=== PATIENT | male | born 1975 | race Hispanic/Latino ===

== ENCOUNTER → 2021-03-03 | Outpatient (CLI) | payer OTHER | END | disposition home or self-care (01) | LOC: RAH 08:13 | PROVIDERS: ATTEND Family Medicine | DX: M51.27 Other intervertebral disc displacement, lumbosacral region (principal); M48.061 Spinal stenosis, lumbar region without neurogenic claudication | CPT/HCPCS: 72146; 72148 ==

== ENCOUNTER 2021-10-23 14:35 | Inpatient (IN) | payer OTHER ==
[~2021-10-23] VITALS: Ht 180.3 cm; Wt 115.2 kg
[2021-10-23 15:07] LABS: BASOPHILS % (AUTO) 0.4 % (0.0-5.0); EOSINOPHILS % (AUTO) 1.3 % (0.0-8.0); HEMATOCRIT 35.6 % (42-54); LYMPHOCYTES % (AUTO) 10.1 % (21.0-51.0); MEAN CORPUSCULAR HEMOGLOBIN 28.5 pg (27.0-33.0); MEAN CORPUSCULAR HGB CONC 33.4 g/dL (32.0-36.0); MEAN CORPUSCULAR VOLUME 85.4 fL (79-99); MONOCYTES % (AUTO) 6.9 % (3.0-13.0); NEUTROPHILS % (AUTO) 80.7 % (40.0-77.0); PLATELET COUNT (AUTO) 350 K/uL (130-400); RED BLOOD CELL COUNT(AUTO) 4.17 MIL/uL (4.50-6.20); RED CELL DISTRIBUTION WIDTH 13.2 % (11.0-15.5); WHITE BLOOD COUNT (AUTO) 13.9 K/uL (4.8-10.8)
[2021-10-23 15:25] LABS: APPEARANCE,URINE CLOUDY (CLEAR); BILIRUBIN,URINE NEGATIVE (NEGATIVE); COLOR,URINE YELLOW (YELLOW); GLUCOSE, URINE (UA) NEGATIVE (NEGATIVE); KETONES,URINE NEGATIVE (NEGATIVE); LEUKOCYTE ESTERASE ,URINE LARGE (NEGATIVE); NITRATE,URINE NEGATIVE (NEGATIVE); OCCULT BLOOD,URINE MODERATE (NEGATIVE); PH,URINE 7.5 (5.0-8.0); PROTEIN,URINE 100 mg/dL (NEGATIVE); UROBILINOGEN,URINE 0.2 mg/dL (0.2-1.0)
[2021-10-23] MEDS ORDERED: 0.9%NACL 1000ML 1,000 ML IV ONE (15:30)
[2021-10-23] MEDS ORDERED: KETOROLAC 30MG VIAL (30MG/ML) IVP ONE (15:30)
[2021-10-23 15:31] LABS: ALBUMIN 3.7 g/dL (3.5-5.0); BILIRUBIN,TOTAL 0.4 mg/dL (0.2-1.0); CREATININE 0.9 mg/dL (0.5-1.5); TOTAL PROTEIN, SERUM 8.5 g/dL (6.0-8.3)
[2021-10-23 15:34] LABS: BACTERIA,URINE Few /HPF (None Seen); WBC,URINE TNTC /HPF (0-1)
[2021-10-23 15:35] LABS: SQUAMOUS EPITHELIAL CELL,UR None Seen /HPF (0-2)
[2021-10-23] MEDS ORDERED: CEFEPIME HCL 2 GM VIAL IVP SCH (16:30)
[2021-10-23] MEDS ORDERED: LISI10TA24 PO (17:16)
[2021-10-23] MEDS ORDERED: ACET-2247 PO (17:16)
[2021-10-23] MEDS ORDERED: ATOR10 PO (17:16)
[2021-10-23] MEDS ORDERED: AMOX500T2 PO (17:16)
[2021-10-23] MEDS ORDERED: METF-446 PO (17:16)
[2021-10-23] MEDS ORDERED: DOCU100C33 PO (17:24)
[2021-10-23] MEDS ORDERED: GABA300S PO (17:24)
[2021-10-23] MEDS ORDERED: ZINC220T4 PO (17:24)
[2021-10-23] MEDS ORDERED: CHOL200026 PO (17:24)
[2021-10-23] MEDS ORDERED: ASCO1CAP5 PO (17:24)
[2021-10-23] MEDS ORDERED: [UNRECOGNIZED DRUG - OTHER] (17:24)
[2021-10-23] MEDS ORDERED: DEXTROSE 50%-WATER 50 ML DISP.SYRIN IV PRN (20:00)
[2021-10-23] MEDS ORDERED: 0.9%NACL 10ML VIAL IVP SCH (20:00)
[2021-10-23] MEDS ORDERED: LACTULOSE 20 GM/30 ML UDCUP PO PRN (20:00)
[2021-10-23] MEDS ORDERED: MAG/ALUM/SIMETH 30 ML UDCUP PO PRN (20:00)
[2021-10-23] MEDS ORDERED: ACETAMINOPHEN 325 MG TAB PO PRN (20:00)
[2021-10-23] MEDS ORDERED: DIPHENHYDRAMINE HCL 25 MG CAPSULE PO PRN (20:00)
[2021-10-23] MEDS: INSULIN R PO SSI SQ SCH (20:22)
[2021-10-23] MEDS: FAMOTIDINE 20MG TAB PO SCH (20:40)
[2021-10-23] MEDS: CEFEPIME HCL 2 GM VIAL IVP SCH (20:40)
[2021-10-24] MEDS ORDERED: ACET1TAB27 PO (01:32)
[2021-10-24] MEDS: ACETAMINOPHEN 325 MG TAB PO PRN ×3 (02:58→18:55)
[2021-10-24] MEDS: INSULIN R PO SSI SQ SCH ×4 (07:30→21:11)
[2021-10-24 07:56] LABS: HEMATOCRIT 30.3 % (42-54); MEAN CORPUSCULAR HEMOGLOBIN 28.7 pg (27.0-33.0); MEAN CORPUSCULAR VOLUME 87.1 fL (79-99); RED BLOOD CELL COUNT(AUTO) 3.48 MIL/uL (4.50-6.20); RED CELL DISTRIBUTION WIDTH 13.2 % (11.0-15.5); WHITE BLOOD COUNT (AUTO) 9.6 K/uL (4.8-10.8)
[2021-10-24] MEDS: CEFEPIME HCL 2 GM VIAL IVP SCH ×2 (08:24→21:11)
[2021-10-24 08:45] LABS: ALBUMIN 2.9 g/dL (3.5-5.0); BILIRUBIN,TOTAL 0.5 mg/dL (0.2-1.0); CREATININE 0.9 mg/dL (0.5-1.5); TOTAL PROTEIN, SERUM 7.3 g/dL (6.0-8.3)
[2021-10-24] MEDS: FAMOTIDINE 20MG TAB PO SCH ×2 (08:48→21:11)
[2021-10-24] MEDS: ENOXAPARIN SODIUM 40 MG/0.4 ML SYRINGE SQ SCH (08:55)
[2021-10-24] MEDS ORDERED: POLYETHYLENE GLYCOL 3350 17 GM POWD.PACK PO SCH (12:00)
[2021-10-24] MEDS ORDERED: BISACODYL 10 MG SUPP.RECT RC SCH (15:00)
[2021-10-25] MEDS: ACETAMINOPHEN 325 MG TAB PO PRN (03:09)
[2021-10-25 06:59] LABS: BASOPHILS % (AUTO) 0.3 % (0.0-5.0); EOSINOPHILS % (AUTO) 4.4 % (0.0-8.0); LYMPHOCYTES % (AUTO) 17.2 % (21.0-51.0); MEAN CORPUSCULAR HEMOGLOBIN 28.2 pg (27.0-33.0); MEAN CORPUSCULAR HGB CONC 33.3 g/dL (32.0-36.0); MEAN CORPUSCULAR VOLUME 84.7 fL (79-99); MONOCYTES % (AUTO) 5.7 % (3.0-13.0); NEUTROPHILS % (AUTO) 71.5 % (40.0-77.0); PLATELET COUNT (AUTO) 283 K/uL (130-400); RED BLOOD CELL COUNT(AUTO) 3.54 MIL/uL (4.50-6.20); RED CELL DISTRIBUTION WIDTH 12.8 % (11.0-15.5); WHITE BLOOD COUNT (AUTO) 9.2 K/uL (4.8-10.8)
[2021-10-25 08:17] LABS: ALBUMIN 2.9 g/dL (3.5-5.0); BILIRUBIN,TOTAL 0.3 mg/dL (0.2-1.0); CREATININE 0.7 mg/dL (0.5-1.5); MAGNESIUM 2.3 mg/dL (1.80-2.40); POTASSIUM 4.1 mmol/L (3.5-5.1)
[2021-10-25] MEDS: INSULIN R PO SSI SQ SCH ×4 (08:44→20:05)
[2021-10-25] MEDS: FAMOTIDINE 20MG TAB PO SCH ×2 (08:45→20:03)
[2021-10-25] MEDS: CEFEPIME HCL 2 GM VIAL IVP SCH ×2 (08:45→20:03)
[2021-10-25] MEDS: ENOXAPARIN SODIUM 40 MG/0.4 ML SYRINGE SQ SCH (08:45)
[2021-10-25 09:10] VITALS: BP 120/65
[2021-10-25 11:00] VITALS: BP 108/69
[2021-10-25] MEDS: ACETAMINOPHEN WITH CODEINE 1 TAB TAB PO PRN ×2 (11:47→20:04)
[2021-10-25] MEDS ORDERED: LIDOCAINE 5% TOPICAL PATCH TP SCH (12:00)
[2021-10-25] MEDS ORDERED: LIDOCAINE 5% TOPICAL PATCH TP ONE (12:00)
[2021-10-25] MEDS: [UNRECOGNIZED DRUG - OTHER] PO SCH ×2 (14:00→20:04)
[2021-10-25] MEDS: BALSAM PERU/CASTOR OIL 60 GM TUBE TP SCH ×2 (15:59→20:05)
[2021-10-25 16:00] VITALS: BP 123/68
[2021-10-25 20:03] VITALS: BP 106/69
[2021-10-25] MEDS: ATORVASTATIN 10 MG TABLET PO SCH (20:03)
[2021-10-25] MEDS: DOCUSATE SODIUM 100 MG CAP PO SCH (20:03)
[2021-10-25] MEDS: GABAPENTIN 300 MG CAPSULE PO SCH (21:02)
[2021-10-25 23:16] VITALS: BP 89/54
[2021-10-26] VITALS (7 sets, daily range): BP systolic 89–134; BP diastolic 49–89
[2021-10-26] MEDS: INSULIN R PO SSI SQ SCH ×4 (05:54→20:26)
[2021-10-26 06:35] LABS: BASOPHILS % (AUTO) 0.6 % (0.0-5.0); EOSINOPHILS % (AUTO) 5.5 % (0.0-8.0); LYMPHOCYTES % (AUTO) 27.2 % (21.0-51.0); MEAN CORPUSCULAR HGB CONC 33.3 g/dL (32.0-36.0); MONOCYTES % (AUTO) 7.2 % (3.0-13.0); NEUTROPHILS % (AUTO) 58.7 % (40.0-77.0); PLATELET COUNT (AUTO) 294 K/uL (130-400); RED BLOOD CELL COUNT(AUTO) 3.45 MIL/uL (4.50-6.20); WHITE BLOOD COUNT (AUTO) 7.1 K/uL (4.8-10.8)
[2021-10-26 06:54] LABS: BILIRUBIN,TOTAL 0.3 mg/dL (0.2-1.0); CREATININE 0.8 mg/dL (0.5-1.5); MAGNESIUM 2.1 mg/dL (1.80-2.40); POTASSIUM 4.1 mmol/L (3.5-5.1); TOTAL PROTEIN, SERUM 7.3 g/dL (6.0-8.3)
[2021-10-26] MEDS: BALSAM PERU/CASTOR OIL 60 GM TUBE TP SCH ×4 (09:00→20:26)
[2021-10-26] MEDS: Cholecalciferol (Vitamin D3) (Vitamin D3) 50 MCG PO SCH (09:00)
[2021-10-26] MEDS: (Zinc Sulfate (Zinc) 50 MG) PO SCH (09:00)
[2021-10-26] MEDS: [UNRECOGNIZED DRUG - OTHER] PO SCH ×3 (09:00→20:32)
[2021-10-26] MEDS: GABAPENTIN 300 MG CAPSULE PO SCH ×3 (10:18→20:25)
[2021-10-26] MEDS: DOCUSATE SODIUM 100 MG CAP PO SCH ×2 (10:18→20:25)
[2021-10-26] MEDS: FAMOTIDINE 20MG TAB PO SCH ×2 (10:18→20:26)
[2021-10-26] MEDS: CEFEPIME HCL 2 GM VIAL IVP SCH ×2 (10:18→20:25)
[2021-10-26] MEDS ORDERED: POLYETHYLENE GLYCOL 3350 17 GM POWD.PACK PO SCH (10:30)
[2021-10-26 11:43] LABS: PROTHROMBIN TIME 10.9 SEC (9.6-11.6)
[2021-10-26] MEDS: ACETAMINOPHEN WITH CODEINE 1 TAB TAB PO PRN (14:45)
[2021-10-26] MEDS ORDERED: ALPRAZOLAM 0.5 MG TABLET PO PRN (19:00)
[2021-10-26] MEDS: ATORVASTATIN 10 MG TABLET PO SCH (20:26)
[2021-10-27 03:44] VITALS: BP 101/64
[2021-10-27 05:21] LABS: HEMATOCRIT 29.9 % (42-54); MEAN CORPUSCULAR HEMOGLOBIN 28.1 pg (27.0-33.0); MEAN CORPUSCULAR HGB CONC 32.8 g/dL (32.0-36.0); MEAN CORPUSCULAR VOLUME 85.7 fL (79-99); RED BLOOD CELL COUNT(AUTO) 3.49 MIL/uL (4.50-6.20); RED CELL DISTRIBUTION WIDTH 12.7 % (11.0-15.5); RETICULOCYTE % (AUTO) 2.3 % (0.42-2.23); WHITE BLOOD COUNT (AUTO) 6.6 K/uL (4.8-10.8)
[2021-10-27 05:49] LABS: % IRON SATURATION 34.4 % (30-44)
[2021-10-27] MEDS: INSULIN R PO SSI SQ SCH (06:02)
[2021-10-27 06:13] LABS: THYROID STIMULATING HORMONE 0.78 uIU/mL (0.36-3.74)
[2021-10-27 08:00] VITALS: BP 118/78
[2021-10-27] MEDS: DOCUSATE SODIUM 100 MG CAP PO SCH (08:37)
[2021-10-27] MEDS: CEFEPIME HCL 2 GM VIAL IVP SCH (08:37)
[2021-10-27] MEDS: FAMOTIDINE 20MG TAB PO SCH (08:38)
[2021-10-27] MEDS: GABAPENTIN 300 MG CAPSULE PO SCH (08:38)
[2021-10-27] MEDS: (Zinc Sulfate (Zinc) 50 MG) PO SCH (09:00)
[2021-10-27] MEDS ORDERED: POLYETHYLENE GLYCOL 3350 17 GM POWD.PACK PO SCH (09:00)
[2021-10-27] MEDS: Cholecalciferol (Vitamin D3) (Vitamin D3) 50 MCG PO SCH (09:00)
[2021-10-27] MEDS: [UNRECOGNIZED DRUG - OTHER] PO SCH (09:00)
[2021-10-27] MEDS: BALSAM PERU/CASTOR OIL 60 GM TUBE TP SCH (09:25)
== END 2021-10-27 12:00 | disposition home or self-care (01) | DRG 872 ==
LOC: EDH 14:35 → EDHIP 19:39 → 3AH 10-25 09:05
PROVIDERS: ADMIT Internal Medicine; ATTEND Internal Medicine
DX: A41.50 Gram-negative sepsis, unspecified (principal); N39.0 Urinary tract infection, site not specified; G82.20 Paraplegia, unspecified; N31.9 Neuromuscular dysfunction of bladder, unspecified; K59.00 Constipation, unspecified; K42.9 Umbilical hernia without obstruction or gangrene; I10 Essential (primary) hypertension; E11.40 Type 2 diabetes mellitus with diabetic neuropathy, unspecified; L89.152 Pressure ulcer of sacral region, stage 2; B96.5 Pseudomonas (aeruginosa) (mallei) (pseudomallei) as the cause of diseases classified elsewhere; L89.322 Pressure ulcer of left buttock, stage 2; L89.312 Pressure ulcer of right buttock, stage 2; E66.9 Obesity, unspecified; Z68.35 Body mass index [BMI] 35.0-35.9, adult; Z74.01 Bed confinement status; Z87.440 Personal history of urinary (tract) infections
CPT/HCPCS: 36415; 71045; 74176; 80053; 81001; 82607; 82728; 82746; 82948; 83540; 83550; 83605; 83735; 84145; 84443; 85025; 85027; 85045; 85610; 86140; 87040; 87077; 87088; 87186; C1894; G0378; J0692; J1650; J1815; J1885; J7030

== ENCOUNTER 2024-07-17 13:01 | Emergency (ER) | payer OTHER, MEDICARE ==
[~2024-07-17] VITALS: Ht 180.3 cm; Wt 108.9 kg
[~2024-07-17 13:01] MED LIST: ACET-2247 PO; ACET1TAB97 PO; ASCO1CAP5 PO; ATOR10 PO; CHOL200026 PO; DOCU100C33 PO; GABA300S3 PO; LISI10TA24 PO; METF-446 PO; ZINC220T4 PO
--- NOTE | 2024-07-17 13:19 | ERN ---
General Chief Complaint: Other Problems Stated Complaint: OTHER Time Seen by MD: 13:04 History of Present Illness Initial Comments 49-year-old male presents to the ED via EMS for evaluation of weakness onset this morning. Patient reports feeling drowsy, but denies any other associated symptoms at this time. Patient reports he was prescribed baclofen and methadone at pain management this Monday and took prescriptions today and began experiencing these symptoms. Allergies: Coded Allergies: No Known Drug Allergies (Unverified Allergy, Unknown, 10/23/21) Home Meds Reported Medications Acetaminophen with Codeine (Acetaminophen-Cod #4 Tablet) 1 Each Tablet, 1 TAB PO Q6HPRN PRN for PAIN 10/24/21 Cholecalciferol (Vitamin D3) (Vitamin D3) 50 Mcg Tablet, 50 MCG PO DAILY, TAB 10/23/21 Zinc Sulfate (Zinc) 50 Mg Tablet, 50 MG PO DAILY, TAB 10/23/21 Ascorbic Acid/Collagen Hydr (Collagen Plus Vit C Capsule) 1 Each Capsule, 1 EACH PO TID, CAP 10/23/21 Docusate Sodium (Docusate Sodium) 100 Mg Capsule, 100 MG PO BID, CAP 10/23/21 Gabapentin (Gabapentin) 300 Mg/6 Ml Solution, 300 MG PO TID, ML 10/23/21 Atorvastatin Calcium (LIPITOR) 20 Mg Tab, 20 MG PO HS, TAB 10/23/21 Lisinopril (Lisinopril) 10 Mg Tablet, 10 MG PO DAILY, TAB 10/23/21 Metformin HCl (Metformin HCl) 1,000 Mg Tablet, 1000 MG PO BID, TAB 10/23/21 Acetaminophen (Tylenol) 325 Mg Tablet, 650 MG PO Q6HPRN PRN for PAIN LEVEL 4 TO 6, TAB 10/23/21 Past Medical History Past Medical History: Diabetes-Type II, High Cholesterol, Other Medical History Other: PARAPLEGIC Past Surgical History: Other Surgical History Other: SUPRAPUBIC CATHETER Social History Social History: Other ROS Dictation Constitutional: Positive for weakness, drowsiness Negative for fever,chills, and weight loss Eyes: Negative for injury, pain,redness, and discharge ENT: Negative for injury,pain or swelling Cardiovascular: Negative for chest pain, palpitations, and edema Respiratory: Negative for shortness of breath, cough, and wheezing, Abdomen/GI: Negative for abdominal pain, nausea, vomiting, diarrhea, and constipation Back: Negative for injury and pain : Negative for injury, bleeding and discharge MS/Extremity: Negative for injury and deformity Skin: Negative for rash, and discoloration Neuro: Negative for headache, weakness, numbness, tingling, and seizure Psych: Negative for suicide ideation, homicidal ideation, and hallucinations Physical Exam Physical Exam Dictation General: awake, alert, NAD, patient is paraplegic Head/Face: Normocephalic, atraumatic Eyes: PERRL, EOMI, vision at baseline ENT: oral cavity clear, TMs clear, no signs of infection Neck: Trachea midline, supple, no nuchal rigidity Cardiovascular: RRR, normal S1/S2, No MRGs, no JVD Respiratory: CTAB, no respiratory distress, No rales or wheezes Abdomen: Soft, non-tender, non-distended, normal bowel sounds, no guarding or rebound. Skin: Warm, dry, normal turgor, no rash MS/Extremity: Pulses equal, no cyanosis Results Laboratory and Microbiology Lab and Micro Result Laboratory Tests Test 07/17/24 13:30 White Blood Count 7.8 K/uL (4.8-10.8) Red Blood Count 4.28 MIL/uL (4.50-6.20) L Hemoglobin 12.6 g/dL (14.0-18.0) L Hematocrit 38.7 % (42-54) L Mean Corpuscular Volume 90.4 fL (79-99) Mean Corpuscular Hemoglobin 29.4 pg (27.0-33.0) Mean Corpuscular Hemoglobin Concent 32.6 g/dL (32.0-36.0) Red Cell Distribution Width 12.3 % (11.0-15.5) Platelet Count 255 K/uL (130-400) Mean Platelet Volume 8.8 fL (7.5-10.5) Immature Granulocyte % (Auto) 0.6 % (0-1) Neutrophils (%) (Auto) 75.6 % (40.0-77.0) Lymphocytes (%) (Auto) 14.2 % (21.0-51.0) L Monocytes (%) (Auto) 7.3 % (3.0-13.0) Eosinophils (%) (Auto) 1.9 % (0.0-8.0) Basophils (%) (Auto) 0.4 % (0.0-5.0) Neutrophils # (Auto) 5.9 K/uL (1.8-7.7) Lymphocytes # (Auto) 1.1 K/uL (1.0-4.8) Monocytes # (Auto) 0.6 K/uL (0.1-1.0) Eosinophils # (Auto) 0.15 K/uL (0.00-0.70) Basophils # (Auto) 0.03 K/uL (0.00-0.20) Absolute Immature Granulocyte (auto 0.05 K/uL (0-1) Nucleated Red Blood Cells 0.0 % (0.0-0.19) Sodium Level 141 mmol/L (136-145) Potassium Level 4.3 mmol/L (3.5-5.1) Chloride Level 105 mmol/L (101-111) Carbon Dioxide Level 28 mmol/L (21-32) Blood Urea Nitrogen 14 mg/dL (7-18) Creatinine 0.9 mg/dL (0.5-1.3) Glomerular Filtration Rate Calc 105 mL/min (>90) Random Glucose 117 mg/dL (70-105) H Total Calcium 9.2 mg/dL (8.5-10.1) Total Bilirubin 0.3 mg/dL (0.2-1.0) Aspartate Amino Transf (AST/SGOT) 20 U/L (10-37) Alanine Aminotransferase (ALT/SGPT) 29 U/L (12-78) Alkaline Phosphatase 74 U/L (50-136) Total Protein 7.5 g/dL (6.0-8.3) Albumin 3.6 g/dL (3.5-5.0) Labs Reviewed?: Yes MDM MDM: Differential diagnosis: medication side effect, dehydration, weakness Previous outside records reviewed: Old ER visits. Need for hospitalization: Patient does not meet criteria for hospitalization. Need for emergency major/minor surgery: No Patient's prior external medical records from other ER visits were reviewed by me as indicated. Prior testing and results from previous visits were reviewed. Prior tests were taken into account with medical decision making and resource utilization, independent historian/historians were used to obtain complete medical history. I independently interpreted the test that were performed, results were reviewed by me and considered findings on radiology if ordered. Medical management and examination interpretation discussions were had by me with other qualified healthcare professionals as indicated for the patient's care. ED Course Orders Procedure Category Date Status Time Cbc With Differential LAB 07/17/24 Complete 13:08 Comprehensive LAB 07/17/24 Complete Metabolic Panel 13:08 0.9%Nacl 1000ml (Ns PHA 07/17/24 Complete 1000ml) 13:30 Current Medications Medications (Trade) Dose Ordered Sig/Jonh Route PRN Reason Start Time Stop Time Status Last Admin Dose Admin Sodium Chloride 1,000 ml @ 0 mls/hr ONCE ONCE IV 07/17/24 13:30 07/17/24 13:31 DC 07/17/24 13:25 Vital Signs Date Time Temp Pulse Resp B/P (MAP) Pulse Ox O2 Delivery O2 Flow Rate FiO2 07/17/24 13:03 98.4 70 18 162/82 98 Room Air* 0 21 07/17/24 13:03 98.4 70 18 162/82 98 Room Air 0 DX & DISP Disposition: Discharge Departure Impression: Primary Impression: Medication side effect Additional Impression: Dehydration Condition: Stable Additional Instructions: FOLLOW-UP WITH PRIMARY CARE PROVIDER IN 1 TO 2 DAYS. TAKE MEDICATIONS DIRECTED HERE IN THE EMERGENCY ROOM. OKAY TO CONTINUE HOME MEDICATIONS UNLESS OTHERWISE DISCUSSED DURING YOUR VISIT IN THE EMERGENCY ROOM TODAY. RETURN TO YOUR NEAREST EMERGENCY ROOM IF SYMPTOMS WORSEN OR IF THERE IS NO IMPROVEMENT. CALL 911 IF YOU NEED IMMEDIATE ASSISTANCE. TAKE TYLENOL [id number] NEEDED AND IF NO CONTRAINDICATIONS ARE PRESENT. INCREASE ORAL HYDRATION. A WOUND CULTURE OR URINE CULTURE WAS ORDERED HERE IN THE EMERGENCY ROOM DEPARTMENT PLEASE FOLLOW-UP WITH PRIMARY CARE PROVIDER AND ADVISE THEM TO GET REPEAT PORTS FROM OUR FACILITY. IF YOU HAD ANY RAUL WRAP/SPLINTS THAT WERE APPLIED HERE, PLEASE DO NOT REMOVE THEM UNTIL YOU SEE YOUR PRIMARY CARE OR SPECIALTY. Referrals: Referrals: GONZALES WALKER MD (PCP) Time of Disposition: 14:13 I have reviewed, & agreed with my scribe's, documentation. (Entered by Karsten García, acting as a scribe for Dr. Irvin) I personally scribed for CARLOS IRVIN MD (GERMÁN) on 07/17/24 at 13:19. Electronically submitted by Karsten García ([email or web address]). I personally scribed for CARLOS IRVIN MD (GERMÁN) on 07/17/24 at 13:25. Electronically submitted by Karsten García (Subtext). I personally scribed for CARLOS IRVIN MD (GERMÁN) on 07/17/24 at 14:15. Electronically submitted by Karsten García ([email or web address]). CARLOS IRVIN MD Jul 17, 2024 13:19
[2024-07-17] MEDS: 0.9%NACL 1000ML 1,000 ML IV ONE (13:25)
[2024-07-17 13:49] LABS: BASOPHILS # (AUTO) 0.03 K/uL (0.00-0.20); BASOPHILS % (AUTO) 0.4 % (0.0-5.0); EOSINOPHILS # (AUTO) 0.15 K/uL (0.00-0.70); EOSINOPHILS % (AUTO) 1.9 % (0.0-8.0); HEMATOCRIT 38.7 % (42-54); IMMATURE GRANULOCYTE ABSOLUTE 0.05 K/uL (0-1); LYMPHOCYTES # (AUTO) 1.1 K/uL (1.0-4.8); LYMPHOCYTES % (AUTO) 14.2 % (21.0-51.0); MEAN CORPUSCULAR HEMOGLOBIN 29.4 pg (27.0-33.0); MEAN CORPUSCULAR HGB CONC 32.6 g/dL (32.0-36.0); MEAN CORPUSCULAR VOLUME 90.4 fL (79-99); MONOCYTES # (AUTO) 0.6 K/uL (0.1-1.0); MONOCYTES % (AUTO) 7.3 % (3.0-13.0); NEUTROPHILS # (AUTO) 5.9 K/uL (1.8-7.7); NEUTROPHILS % (AUTO) 75.6 % (40.0-77.0); PLATELET COUNT (AUTO) 255 K/uL (130-400); RED BLOOD CELL COUNT(AUTO) 4.28 MIL/uL (4.50-6.20); RED CELL DISTRIBUTION WIDTH 12.3 % (11.0-15.5); WHITE BLOOD COUNT (AUTO) 7.8 K/uL (4.8-10.8)
[2024-07-17 14:01] LABS: ALBUMIN 3.6 g/dL (3.5-5.0); BILIRUBIN,TOTAL 0.3 mg/dL (0.2-1.0); CREATININE 0.9 mg/dL (0.5-1.3); POTASSIUM 4.3 mmol/L (3.5-5.1); TOTAL PROTEIN, SERUM 7.5 g/dL (6.0-8.3)
[2024-07-17 14:46] VITALS: BP 135/68; PULSE 85; RESP 20; TEMP 97.8; O2SAT 96
== END 2024-07-17 14:49 | disposition home or self-care (01) ==
LOC: EDH 13:01
DX: E86.0 Dehydration (principal); T42.8X5A Adverse effect of antiparkinsonism drugs and other central muscle-tone depressants, initial encounter; E11.9 Type 2 diabetes mellitus without complications; E78.00 Pure hypercholesterolemia, unspecified; Z79.84 Long term (current) use of oral hypoglycemic drugs; Z79.899 Other long term (current) drug therapy; Y92.89 Other specified places as the place of occurrence of the external cause
CPT/HCPCS: 99284; 96360; 80053; 85025; 36415; J7030

== ENCOUNTER 2024-12-10 19:04 | Emergency (ER) | payer MEDICARE, OTHER ==
[~2024-12-10] VITALS: Ht 180.3 cm; Wt 122.5 kg
--- NOTE | 2024-12-10 19:13 | ERN ---
ED Note History of Present Illness Stated Complaint: BACK PAIN,SOB Chief Complaint: Back Pain-No Injury Time Seen by MD: 19:05 Dictation: PATIENT IS A 49-YEAR-OLD PARAPLEGIC MALE IN A WHEELCHAIR WITH COMPLAINTS OF SHORTNESS A BREATH BACK PAIN. HE STATES HE HAS HAD NO FEVER NO CHILLS NO NAUSEA VOMITING. HE HAS A SUPRAPUBIC CATHETER DUE TO HIS PARAPLEGIA. HE STATES THE LAST TIME HE FELT THIS WAY �HE WENT TO [facility] HAD PNEUMONIA�. DENIES NAUSEA VOMITING, CALLED HIS PRIMARY CARE DOCTOR TODAY, HAS A AN APPOINTMENT TOMORROW. Allergies: Coded Allergies: No Known Drug Allergies (Unverified Allergy, Unknown, 10/23/21) Home Meds Reported Medications Acetaminophen with Codeine (Acetaminophen-Cod #4 Tablet) 1 Each Tablet, 1 TAB PO Q6HPRN PRN for PAIN 10/24/21 Cholecalciferol (Vitamin D3) (Vitamin D3) 50 Mcg Tablet, 50 MCG PO DAILY, TAB 10/23/21 Zinc Sulfate (Zinc) 50 Mg Tablet, 50 MG PO DAILY, TAB 10/23/21 Ascorbic Acid/Collagen Hydr (Collagen Plus Vit C Capsule) 1 Each Capsule, 1 EACH PO TID, CAP 10/23/21 Docusate Sodium (Docusate Sodium) 100 Mg Capsule, 100 MG PO BID, CAP 10/23/21 Gabapentin (Gabapentin) 300 Mg/6 Ml Solution, 300 MG PO TID, ML 10/23/21 Atorvastatin Calcium (LIPITOR) 20 Mg Tab, 20 MG PO HS, TAB 10/23/21 Lisinopril (Lisinopril) 10 Mg Tablet, 10 MG PO DAILY, TAB 10/23/21 Metformin HCl (Metformin HCl) 1,000 Mg Tablet, 1000 MG PO BID, TAB 10/23/21 Acetaminophen (Tylenol) 325 Mg Tablet, 650 MG PO Q6HPRN PRN for PAIN LEVEL 4 TO 6, TAB 10/23/21 Past Medical History Past Medical History: Diabetes-Type II, High Cholesterol, Other Additional Past Medical Hx: PARAPLEGIC Surgical History: Other Surgical History Other: SUPRAPUBIC CATHETER Social History: Other RN Note Reviewed/Agreed w/PFSH: Yes Review of System Dictation CONSTITUTIONAL: NEGATIVE EXCEPT FOR HPI HEAD/FACE: NEGATIVE EXCEPT FOR HPI EENT: NEGATIVE EXCEPT FOR HPI RESPIRATORY: NEGATIVE EXCEPT FOR HPI SHORTNESS A BREATH GASTROINTESTINAL/ABDOMINAL: NEGATIVE EXCEPT FOR HPI GENITOURINARY: NEGATIVE EXCEPT FOR HPI MUSCULOSKELETAL: NEGATIVE EXCEPT FOR HPI BACK PAIN INTEGUMENTARY: NEGATIVE EXCEPT FOR HPI NEUROLOGICAL/PSYCH: NEGATIVE EXCEPT FOR HPI HEMATOLOGIC/LYMPHATIC: NEGATIVE EXCEPT FOR HPI ALL SYSTEMS NEGATIVE, EXCEPT NOTED ABOVE. 13 POINT REVIEW OF SYSTEMS ASSESSED AND ALL NEGATIVE EXCEPT FOR ABOVE. Initial Vital Sign VS Vital Signs Date Time Temp Pulse Resp B/P (MAP) Pulse Ox O2 Delivery O2 Flow Rate FiO2 12/10/24 19:09 98.1 20 Room Air 12/10/24 19:29 79 116/69 98 0 21 Physical Exam Dictation VITAL SIGNS REVIEWED GENERAL APPEARANCE: ALERT, ORIENTED X 3, NO ACUTE DISTRESS, WELL DEVELOPED, NOURISHED. HEAD AND FACE: NON-TRAUMATIC. EYES: PERRL, PINK CONJUNCTIVAS, EYELID NO TRAUMA, ANTERIOR CHAMBER WITH ARCUS SENILIS. EARS: PINNAS INTACT AND NO SIGNS OF TRAUMA OR ERYTHEMA EAR CANALS CLEAR AND NO DISCHARGE TM NO ERYTHEMA NOSE: NO DISCHARGE, NO BLEEDING. OROPHARYNX: MOUTH NORMAL, TONGUE PINK, PHARYNX CLEAR,NO ERYTHEMA, TONSILS NO EXUDATES, NO ABSCESSES NOTED, MUCOUS MEMBRANE MOIST NECK: SUPPLE, NON-TENDER, NO THYROMEGALY, NO MASSES, NO JVD, NO BRUITS BREAST:DEFERRED CHEST:NO TENDERNESS, NO CREPITUS, NO PARADOXICAL MOVEMENT, NO RETRACTIONS LUNGS:CLEAR, WELL-VENTILATED, SYMMETRIC, NO RALES, NO WHEEZING, NO RHONCHI, NO STRIDOR, GOOD BREATH SOUNDS BILATERALLY HEART: REGULAR RATE, REGULAR RHYTHM, NO MURMUR, NO GALLOPS VASCULAR: NO PERIPHERAL EDEMA, ABDOMEN: SOFT, POSITIVE BOWEL SOUNDS, NONDISTENDED, NO GUARDING, NONTENDER, NO REBOUND, NO MASSES NO HEPATOMEGALY, NO SPLENOMEGALY, NO COBOS'S SIGN, NO HERNIAS. RECTAL: DEFERRED SUPRAPUBIC CATHETER IN PLACE, TURBID URINE NOTED IN BAG. GENITAL: DEFERRED NEUROLOGICAL: NORMAL SPEECH, PARAPLEGIA PATIENT IN WHEELCHAIR MUSCULOSKELETAL: NECK NONTENDER, FULL RANGE OF MOTION, BACK NONTENDER, FULL RANGE OF MOTION, EXTREMITIES: NONTENDER, FULL RANGE OF MOTION SKIN: COLOR PINK, DRY, NO TURGOR, NO RASH, NO LACERATIONS, NO ABRASIONS, NO CONTUSIONS. LYMPHATIC: DEFERRED Results (Laboratory/Radiology) Laboratory/Radiology Laboratory Tests Test 12/10/24 19:29 12/10/24 19:41 12/10/24 21:54 White Blood Count 10.4 K/uL (4.8-10.8) Red Blood Count 5.39 MIL/uL (4.50-6.20) Hemoglobin 14.5 g/dL (14.0-18.0) Hematocrit 43.5 % (42-54) Mean Corpuscular Volume 80.7 fL (79-99) Mean Corpuscular Hemoglobin 26.9 pg (27.0-33.0) L Mean Corpuscular Hemoglobin Concent 33.3 g/dL (32.0-36.0) Red Cell Distribution Width 14.1 % (11.0-15.5) Platelet Count 305 K/uL (130-400) Mean Platelet Volume 8.7 fL (7.5-10.5) Immature Granulocyte % (Auto) 0.4 % (0-1) Neutrophils (%) (Auto) 68.2 % (40.0-77.0) Lymphocytes (%) (Auto) 21.4 % (21.0-51.0) Monocytes (%) (Auto) 7.6 % (3.0-13.0) Eosinophils (%) (Auto) 2.0 % (0.0-8.0) Basophils (%) (Auto) 0.4 % (0.0-5.0) Neutrophils # (Auto) 7.1 K/uL (1.8-7.7) Lymphocytes # (Auto) 2.2 K/uL (1.0-4.8) Monocytes # (Auto) 0.8 K/uL (0.1-1.0) Eosinophils # (Auto) 0.21 K/uL (0.00-0.70) Basophils # (Auto) 0.04 K/uL (0.00-0.20) Absolute Immature Granulocyte (auto 0.04 K/uL (0-1) Nucleated Red Blood Cells 0.0 % (0.0-0.19) Sodium Level 133 mmol/L (136-145) L Potassium Level 3.0 mmol/L (3.5-5.1) *L Chloride Level 97 mmol/L (101-111) L Carbon Dioxide Level 27 mmol/L (21-32) Blood Urea Nitrogen 16 mg/dL (7-18) Creatinine 1.0 mg/dL (0.5-1.3) Glomerular Filtration Rate Calc 93 mL/min (>90) Random Glucose 116 mg/dL (70-105) H Lactic Acid Level 2.5 mmol/L (0.8-2.5) 1.8 mmol/L (0.8-2.5) Total Calcium 9.3 mg/dL (8.5-10.1) SARS-CoV-2 Antigen (Rapid) PRESUMPTIVE NEGATIVE Urine Color YELLOW (YELLOW) Urine Appearance CLEAR (CLEAR) Urine pH 6.0 (5.0-8.0) Urine Specific [place]son 1.010 (1.001-1.031) Urine Protein TRACE mg/dL (NEGATIVE) H Urine Glucose (UA) NEGATIVE mg/dL (NEGATIVE) Urine Ketones NEGATIVE mg/dL (NEGATIVE) Urine Occult Blood MODERATE (NEGATIVE) H Urine Nitrate NEGATIVE (NEGATIVE) Urine Bilirubin NEGATIVE mg/dL (NEGATIVE) Urine Urobilinogen 0.2 mg/dL (0.2-1.0) Urine Leukocyte Esterase MODERATE Sree/uL Urine RBC 6-10 /HPF (0-1) H Urine WBC 26-50 /HPF (0-1) H Urine WBC Clumps (Auto) RARE /HPF (0-1) Urine Other Crystals (Auto) 3 /HPF (None Seen) Urine Bacteria FEW /HPF (None Seen) PORTABLE CHEST RADIOGRAPH INDICATION: SOB/COUGH COMPARISON: 10/26/2021 FINDINGS: Heart size is normal. The pulmonary vascularity and paulino appear normal. No abnormal pulmonary parenchymal opacity or consolidation identified. No significant pleural effusion noted. No pneumothorax detected. IMPRESSION: No radiographic evidence for any acute cardiopulmonary process. Labs Reviewed?: Yes ED Course ED Course Orders Procedure Category Date Status Time Covid19 (Sars Antigen LAB 12/10/24 Complete Rapid) 19:10 Cbc With Differential LAB 12/10/24 Complete 19:10 Blood Cult FELIPA 12/10/24 In Process 19:10 Urinalysis Profile LAB 12/10/24 Complete 19:10 Lactic Acid LAB 12/10/24 Complete 19:10 Basic Metabolic Panel LAB 12/10/24 Complete 19:10 Chest 1vw RAD 12/10/24 Resulted 19:10 Culture Urine FELIPA 12/10/24 In Process 19:58 Potassium Bicarb/Cit PHA 12/10/24 Complete Ac 25meq (K-Lyte Ta 20:00 Ceftriaxone 2gm Vial PHA 12/10/24 Complete (Rocephin 2gm Inj) 20:30 0.9%Nacl 1000ml (Ns PHA 12/10/24 Complete 1000ml) 20:30 Lactic Acid LAB 12/10/24 Complete 21:43 Hydrocodone/Apap PHA 12/10/24 Complete 5/325 (D[place]ont 5/325mg) 22:30 Morphine 4mg Syg PHA 12/10/24 Logged (Morphine 4mg Syg) 23:00 Current Medications Medications (Trade) Dose Ordered Sig/Jonh Route PRN Reason Start Time Stop Time Status Last Admin Dose Admin Acetaminophen/ Hydrocodone Bitart (NORco 5/325MG) 1 tab ONCE ONCE PO 12/10/24 22:30 12/10/24 22:31 DC Ceftriaxone Sodium (Rocephin 2gm Inj) 2 gm ONCE ONCE IVPB 12/10/24 20:30 12/10/24 20:34 DC 12/10/24 21:09 Morphine Sulfate (morPHINE 4MG SYG) 4 mg ONCE ONCE IVP 12/10/24 23:00 12/10/24 23:01 UNV Potassium Bicarbonate (K-Lyte Tablet Eff 25 Meq Tablet.eff) 50 meq ONCE ONCE PO 12/10/24 20:00 12/10/24 20:01 DC 12/10/24 20:33 Sodium Chloride 1,000 ml @ 0 mls/hr ONCE ONCE IV 12/10/24 20:30 12/10/24 20:34 DC 12/10/24 21:11 Vital Signs Date Time Temp Pulse Resp B/P (MAP) Pulse Ox O2 Delivery O2 Flow Rate FiO2 12/10/24 21:16 80 15 124/79 98 Room Air* 0 21 12/10/24 19:29 98.1 79 16 116/69 98 Room Air* 0 21 12/10/24 19:09 98.1 20 Room Air 2235 PATIENT DISCHARGED HOME AFTER BEING GIVEN ADDITIONAL MORPHINE FOR PAIN MANAGEMENT. HE IS AWARE THAT LACTIC ACID IS NOW NORMALIZED. DISCHARGED HOME WITH AUGMENTIN 875 FOR SEVEN DAYS. HE STATES HE HAS A DILAUDID AT HOME FOR HIS CHRONIC BACK PAIN. ALSO STATES HE HAS A A PAIN STIMULATOR THAT Medical Decision Making MDM MDM: DIFFERENTIAL DIAGNOSIS: PNEUMONIA/BRONCHITIS/SEPSIS/URINARY TRACT INFECTION/ELECTROLYTE IMBALANCE/CHRONIC BACK PAIN RATIONALE: TESTS CONSIDERED AND ORDERED SECONDARY TO SHARED DECISION MAKING INCLUDE: LABS/RADIOLOGY PREVIOUS OUTSIDE RECORDS REVIEWED: OLD ER VISITS. RISK OF COMPLICATION AND/OR MORBIDITY OR MORTALITY OF PATIENT MANAGEMENT: NONE MEDICATIONS-PER MEDICATION RECONCILIATION NEED FOR HOSPITALIZATION: PATIENT DOES NOT MEET CRITERIA FOR HOSPITALIZATION. NO NEED FOR EMERGENCY MAJOR/MINOR SURGERY: NO THERE ARE NO SOCIAL CONCERNS WITH THIS PATIENT. PRESCRIPTION DRUG MANAGEMENT AUGMENTIN, PATIENT STATES HE HAS DILAUDID AT HOME FROM HIS CHRONIC PAIN SPECIALIST. PRESCRIPTIONS WILL INCLUDE SYMPTOMATIC CARE PATIENT'S PRIOR EXTERNAL MEDICAL RECORDS FROM OTHER ER VISITS WERE REVIEWED BY ME INDICATED. PRIOR TESTING AND RESULTS FROM PREVIOUS VISITS WERE REVIEWED. PRIOR TESTS WERE TAKEN INTO ACCOUNT WITH MEDICAL DECISION MAKING AND RESOURCE UTILIZATION, INDEPENDENT HISTORIAN/HISTORIANS WERE USED TO OBTAIN COMPLETE MEDICAL HISTORY. I INDEPENDENTLY INTERPRETED THE TEST THAT WERE PERFORMED, RESULTS WERE REVIEWED BY ME AND CONSIDERED FINDINGS ON RADIOLOGY IF ORDERED. MEDICAL MANAGEMENT AND EXAMINATION INTERPRETATION DISCUSSIONS WERE HAD BY ME WITH OTHER QUALIFIED HEALTHCARE PROFESSIONALS INDICATED FOR THE PATIENT'S CARE. DX & DISP Disposition: Discharge Departure Impression: Primary Impression: Complicated UTI (urinary tract infection) Additional Impressions: Dehydration, Paraplegia, Sepsis Condition: Stable Scripts Amoxicillin/Potassium Clav (Amox Tr-K Clv 875-125 mg Tab) 875 Mg-125 Mg Tablet 1 EACH PO BID for 7 Days, #14 TAB 0 Refills Prov: IRAM SCOTT LEATHER TOOLER 12/10/24 Additional Instructions: FOLLOW-UP WITH PRIMARY CARE PROVIDER IN 1 TO 2 DAYS. TAKE MEDICATIONS DIRECTED HERE IN THE EMERGENCY ROOM. OKAY TO CONTINUE HOME MEDICATIONS UNLESS OTHERWISE DISCUSSED DURING YOUR VISIT IN THE EMERGENCY ROOM TODAY. RETURN TO YOUR NEAREST EMERGENCY ROOM IF SYMPTOMS WORSEN OR IF THERE IS NO IMPROVEMENT. CALL 911 IF YOU NEED IMMEDIATE ASSISTANCE. TAKE TYLENOL OR MOTRIN [id number] NEEDED AND IF NO CONTRAINDICATIONS ARE PRESENT. INCREASE ORAL HYDRATION. A WOUND CULTURE OR URINE CULTURE WAS ORDERED HERE IN THE EMERGENCY ROOM DEPARTMENT PLEASE FOLLOW-UP WITH PRIMARY CARE PROVIDER AND ADVISE THEM TO GET REPEAT PORTS FROM OUR FACILITY. IF YOU HAD ANY RAUL WRAP/SPLINTS THAT WERE APPLIED HERE, PLEASE DO NOT REMOVE THEM UNTIL YOU SEE YOUR PRIMARY CARE OR SPECIALTY. TAKE ANTIBIOTICS DIRECTED UNTIL GONE. , INCREASE YOUR WATER INTAKE. TAKE YOUR DILAUDID AT HOME NEEDED FOR YOUR CHRONIC BACK PAIN. Referrals: GONZALES WALKER MD (PCP) Time of Disposition: 22:40 I have reviewed the case, and I agree with, Diagnosis and Plan IRAM SCOTT LEATHER TOOLER December 10, 2024 19:13
--- NOTE | 2024-12-10 19:29 | NUR ---
PT CARE ASSUMED AT THIS TIME
--- NOTE | 2024-12-10 19:31 | HMCIMG ---
PORTABLE CHEST RADIOGRAPH INDICATION: SOB/COUGH COMPARISON: 10/26/2021 FINDINGS: Heart size is normal. The pulmonary vascularity and paulino appear normal. No abnormal pulmonary parenchymal opacity or consolidation identified. No significant pleural effusion noted. No pneumothorax detected. IMPRESSION: No radiographic evidence for any acute cardiopulmonary process.
[2024-12-10 19:40] LABS: BASOPHILS # (AUTO) 0.04 K/uL (0.00-0.20); BASOPHILS % (AUTO) 0.4 % (0.0-5.0); EOSINOPHILS # (AUTO) 0.21 K/uL (0.00-0.70); HEMATOCRIT 43.5 % (42-54); IMMATURE GRANULOCYTE ABSOLUTE 0.04 K/uL (0-1); LYMPHOCYTES # (AUTO) 2.2 K/uL (1.0-4.8); LYMPHOCYTES % (AUTO) 21.4 % (21.0-51.0); MEAN CORPUSCULAR HEMOGLOBIN 26.9 pg (27.0-33.0); MEAN CORPUSCULAR HGB CONC 33.3 g/dL (32.0-36.0); MEAN CORPUSCULAR VOLUME 80.7 fL (79-99); MONOCYTES # (AUTO) 0.8 K/uL (0.1-1.0); MONOCYTES % (AUTO) 7.6 % (3.0-13.0); NEUTROPHILS # (AUTO) 7.1 K/uL (1.8-7.7); NEUTROPHILS % (AUTO) 68.2 % (40.0-77.0); PLATELET COUNT (AUTO) 305 K/uL (130-400); RED BLOOD CELL COUNT(AUTO) 5.39 MIL/uL (4.50-6.20); RED CELL DISTRIBUTION WIDTH 14.1 % (11.0-15.5); WHITE BLOOD COUNT (AUTO) 10.4 K/uL (4.8-10.8)
[2024-12-10 19:55] LABS: APPEARANCE,URINE CLEAR (CLEAR); BILIRUBIN,URINE NEGATIVE (NEGATIVE); COLOR,URINE YELLOW (YELLOW); GLUCOSE, URINE (UA) NEGATIVE (NEGATIVE); KETONES,URINE NEGATIVE (NEGATIVE); LEUKOCYTE ESTERASE ,URINE MODERATE Leu/uL (NEGATIVE); NITRATE,URINE NEGATIVE (NEGATIVE); OCCULT BLOOD,URINE MODERATE (NEGATIVE); PROTEIN,URINE TRACE mg/dL (NEGATIVE); UROBILINOGEN,URINE 0.2 mg/dL (0.2-1.0)
[2024-12-10 19:58] LABS: ADD UA MICROSCOPIC YES
[2024-12-10 20:08] LABS: BACTERIA,URINE FEW /HPF (None Seen); MUCUS,URINE RARE LPF (None Seen); UNCLASSIFIED CRYSTAL 3 /HPF (None Seen); WBC CLUMP RARE /HPF (0-1); WBC,URINE 26-50 /HPF (0-1)
[2024-12-10] MEDS: PoTASSium BIcarbonate/CIT AC 25 MEQ TABLET.EFF PO ONE (20:33)
[2024-12-10] MEDS: CEFTRIAXONE 2GM VIAL IVPB ONE (21:09)
[2024-12-10] MEDS: 0.9%NACL 1000ML 1,000 ML IV ONE (21:11)
[2024-12-10] MEDS: HYDROcodone/APAP 5/325 1 TAB TABLET PO ONE (22:37)
[2024-12-10] MEDS ORDERED: AMOX1TAB16 PO (22:40)
[2024-12-10] MEDS: morPHINE 4 MG SYG IVP ONE (23:20)
[2024-12-10 23:59] VITALS: BP 114/79; PULSE 78; RESP 16; TEMP 98.1; O2SAT 99
[2024-12-12] MEDS ORDERED: ATOR40TA69 PO (22:49)
[2024-12-12] MEDS ORDERED: GABA-529 PO (22:49)
[2024-12-12] MEDS ORDERED: HYDR2TAB8 PO (22:49)
[2024-12-12] MEDS ORDERED: ALPR0.5T8 PO (22:49)
[2024-12-12] MEDS ORDERED: BACL10TA PO (22:49)
[2024-12-13] MEDS ORDERED: HYDR-4060 PO (23:41)
[2024-12-13] MEDS ORDERED: LACT20PA6 PO (23:41)
[2024-12-13] MEDS ORDERED: BISA10SU61 PR (23:41)
[2024-12-15] MEDS ORDERED: LEVO750T68 PO (16:14)
[2024-12-15] MEDS ORDERED: TAMS-55 PO (16:14)
== END 2024-12-11 | disposition home or self-care (01) ==
LOC: EDH 19:04
DX: A41.9 Sepsis, unspecified organism (principal); N39.0 Urinary tract infection, site not specified; G82.20 Paraplegia, unspecified; E86.0 Dehydration; E11.9 Type 2 diabetes mellitus without complications; E78.00 Pure hypercholesterolemia, unspecified; Z20.822 Contact with and (suspected) exposure to COVID-19; Z79.84 Long term (current) use of oral hypoglycemic drugs; Z79.899 Other long term (current) drug therapy; Z98.890 Other specified postprocedural states
CPT/HCPCS: 99285; 96365; 71045; 96375; 87426; 80048; 85025; 87040 ×2; 87086 ×2; 87186; 83605 ×2; 81001; 36415; J7030; J0696; J2270